=== PATIENT | male | born 1950 | race Caucasian/White ===

== ENCOUNTER 2021-10-12 15:00 | Outpatient (CLI) | payer MEDICARE ==
[~2021-10-12 15:00] MED LIST: Iopamidol-370 76% 500 ML 1 ML ONE
== END 2021-10-12 15:01 | disposition home or self-care (01) ==
LOC: BICCT 15:00
PROVIDERS: ATTEND Urology
DX: R31.0 Gross hematuria (principal); N40.0 Benign prostatic hyperplasia without lower urinary tract symptoms; K59.00 Constipation, unspecified; N32.89 Other specified disorders of bladder
CPT/HCPCS: 74178; 82565